=== PATIENT | male | born 1960 | race Caucasian/White ===

== ENCOUNTER 2022-02-12 00:29 | Day surgery (SDC) | payer OTHER, SELFPAY ==
[2022-01-31 15:14] VITALS: BMI 27.4
[2022-02-12 12:00] VITALS: BP 143/80; PULSE 76; RESP 18; TEMP 37.1; O2SAT 96
--- NOTE | 2022-02-12 12:01 | WPDANESEPPF ---
Anes - Initial Pre Proc Eval Procedure: Operation Date: 02/12/22 13:15 Proposed Procedures p Screening Colonoscopy - Neville Michelle MD Date/Time: 02/12/22 12:01 Surgeon: Neville Michelle MD Pre Op Diagnosis: neoplasm screening Patient Data Age: 61 Gender: M Height: 1.73 m Weight: 82 kg Allergies Allergy/AdvReac Type Severity Reaction Status Date / Time No Known Allergies Allergy Verified 02/12/22 11:59 Home Medications Medication Instructions Recorded Confirmed Type No Home Medications 01/31/22 01/31/22 History Patient hx anesthesia problems: none Family hx anesthesia problems: none Results Review: All pre-operative results and documents have been reviewed as part of the pre-operative evaluation. [facility], [facility] Past Medical History Medical History BMI 28.0-28.9,adult Colon cancer screening Encounter for prostate cancer screening PSA 2.02 on 12/31/2021 Encounter for wellness examination in adult Hemospermia urinalysis and urine culture negative on 12/31/2021 Mixed hyperlipidemia (12/31/21) total cholesterol 255, triglycerides 168, HDL 47, LDL 176 on 12/31/2021 Tinnitus Surgical History Surgical History H/O left wrist surgery Family History Family History Father Alcoholism Cancer Mother Diabetes mellitus Social History Social History Smoking status: Never smoker Alcohol intake: current Drinks per week: 1 Substance use: never Substance use type: does not use Living arrangements: alone Spiritual care concerns: No Anes - Eval Final PreProcedure Day of Procedure 02/12/22 12:01 Patient weight: overweight Heart: regular rate and rhythm Lungs: clear to auscultation Airway: Mallampati scale class 1 Neurological: alert and oriented Last oral intake: >/= 8 hours ASA classification: II Emergent: no Anesthetic plan: proceed Anesthesia type and monitoring: general GIVS and standard monitoring Results Review: All pre-operative results and documents have been reviewed as part of the pre-operative evaluation. Informed Consent: The patient's anesthetic plan and its attendant risks and benefits were discussed with the patient/family/POA. Questions were solicited and answers provided to the satisfaction of the patient/family/POA.
[2022-02-12] MEDS: LACTATED RINGERS 1,000 ML 150 ML IV CONT (12:08)
--- NOTE | 2022-02-12 12:10 | PM.HPGS ---
History of Present Illness History of Present Illness Consent: Risks, benefits, and alternatives have been discussed and questions answered. Patient agrees to proceed with procedure. Chief complaint: neoplasm screening Narrative: Arpan Turk is a 61 year old male here for first screening colonoscopy Review of Systems Constitutional: Constitutional: Denies headache(s) and Denies weakness Eyes: Eyes: Denies blurry vision ENT: Reports Normal hearing present, Denies headache(s) and Denies neck pain Cardiovascular: Cardiovascular: Denies chest pain and Denies dyspnea Respiratory: Respiratory: Denies dyspnea Gastrointestinal: Gastrointestinal: Reports no additional gastrointestinal complaints Genitourinary: Genitourinary: Denies dysuria Musculoskeletal: Musculoskeletal: Denies neck pain Integumentary/Breasts: Skin/Breast: Denies dry skin Neurologic: Reports Normal hearing present, Denies headache(s) and Denies weakness Psychiatric: Psychiatric: Denies anxiety Endocrine: Endocrine: Denies change in body appearance Hematologic/Lymphatic: Hematologic/Lymphatic: Denies easy bleeding Allergic/Immunologic: Allergic/Immunologic: Denies urticaria PMF Past Medical History Medical History BMI 28.0-28.9,adult Colon cancer screening Encounter for prostate cancer screening PSA 2.02 on 12/31/2021 Encounter for wellness examination in adult Hemospermia urinalysis and urine culture negative on 12/31/2021 Mixed hyperlipidemia (12/31/21) total cholesterol 255, triglycerides 168, HDL 47, LDL 176 on 12/31/2021 Tinnitus Surgical History Surgical History H/O left wrist surgery Family History Family History Father Alcoholism Cancer Mother Diabetes mellitus Social History Social History Smoking status: Never smoker Alcohol intake: current Drinks per week: 1 Substance use: never Substance use type: does not use Living arrangements: alone Spiritual care concerns: No Meds Home Medications and Allergies Home Medications Medication Instructions Recorded Confirmed Type No Home Medications 01/31/22 01/31/22 History Allergies Allergy/AdvReac Type Severity Reaction Status Date / Time No Known Allergies Allergy Verified 02/12/22 11:59 Vital Signs Vital Signs - 24 hr 02/12/22 12:00 Temperature 98.7 F Pulse Rate 76 Respiratory Rate 18 Blood Pressure 143/80 H Pulse Oximetry 96 Exam Const: General: comfortable and no acute distress HENMT: General nose exam: Normal nares present Eyes: General: appearance normal, both eyes and all related structures Neck: Neck: no JVD Resp: Auscultation: clear to auscultation bilaterally Cardio: Rate: regular rate Rhythm: regular rhythm GI: Inspection: non-distended GI Palp: Yes Soft to palpation Skin: General skin exam: normal color Neuro: General: gait normal Speech: normal speech Extrem: General: normal to inspection Psych: Mental Status: mental status grossly normal Assessment and Plan Assessment and plan (1) Colon cancer screening: Code(s): Z12.11 - Encounter for screening for malignant neoplasm of colon Status: Acute Assessment and Plan: colonoscopy
[2022-02-12 12:29] VITALS: BP 107/66; PULSE 80; RESP 18; O2SAT 95
[2022-02-12 12:39] VITALS: BP 118/66; PULSE 75; RESP 20; O2SAT 99
[2022-02-12 12:49] VITALS: BP 118/66; PULSE 75; RESP 20; O2SAT 99
== END 2022-02-12 13:30 | disposition home or self-care (01) ==
PROVIDERS: PCP Family Medicine; Visit Provider Internal Medicine Gastroenterology
PROC: 0DJD8ZZ Inspection of Lower Intestinal Tract, Via Natural or Artificial Opening Endoscopic (ICD-10-PCS; CPT 45378; principal; 2022-02-12 13:15)
DX: Z12.11 Encounter for screening for malignant neoplasm of colon (principal); K57.30 Diverticulosis of large intestine without perforation or abscess without bleeding; K64.8 Other hemorrhoids; E78.2 Mixed hyperlipidemia
CPT/HCPCS: 45378; J2001; J2704; J7120

== ENCOUNTER 2023-07-15 10:16 | Outpatient (CLI) | payer OTHER, SELFPAY ==
--- NOTE | 2023-07-15 10:31 | ECG_ITS ---
Measurements Intervals [place] Rate: 58 P: 52 MO: 187 QRS: -23 QRSD: 119 T: -11 QT: 390 QTc: 383 Interpretive Statements SINUS BRADYCARDIA INFERIOR MYOCARDIAL INFARCTION , OF INDETERMINATE AGE [40+ ms Q WAVE AND/OR ST/T ABNORMALITY IN II/aVF] NO PREVIOUS ECG AVAILABLE FOR COMPARISON Electronically Signed On 07-15-2023 15:23:37 CDT by Cristina Denise M.D.
== END 2023-07-15 10:17 | disposition home or self-care (01) ==
LOC: ANHIMG 10:19
PROVIDERS: PCP Family Medicine; Visit Provider Family Medicine
DX: I10 Essential (primary) hypertension (principal); R00.1 Bradycardia, unspecified; I25.2 Old myocardial infarction
CPT/HCPCS: 93005

== ENCOUNTER 2023-08-31 08:17 | Outpatient (CLI) | payer OTHER, SELFPAY ==
--- NOTE | 2023-08-31 08:31 | ECHO_ITS ---
Patient Info Name: Arpan Turk Age: 63 years : 1960 Gender: Male Ht: 68 in Wt: 187 lbs BSA: 2.04 m2 HR: 65 bpm BP: 139 / 75 mmHg Technical Quality: Good Exam Date: 08/31/2023 8:41 AM Exam Location: [facility] Patient Status: Outpatient Admit Date: 08/31/2023 Staff Ordering Physician: Mehrdad Willett MD Application Chemist: Elizabeth Gracia RDCS Attending Provider: Mehrdad Willett MD Referring Physician: Brennon MARVIN; Exam Type: CA echo doppler color flow Study Info Indications R94.31 - Abnormal electrocardiogram ECG EKG Complete two-dimensional, color flow and Doppler transthoracic echocardiogram is performed. Summary 1. Complete two-dimensional, color flow and Doppler transthoracic echocardiogram is performed. 2. Left ventricular chamber dimension is normal. 3. Ventricular septum is sigmoid shaped. No LVOT obstruction. 4. Left ventricular systolic function is normal, estimated at 60-65%. 5. The left ventricular diastolic function is grade II diastolic dysfunction. 6. E/e' 9 is minimally elevated. 7. Global longitudinal strain is normal at -17.2%. 8. There is mild aortic valve sclerosis. 9. There is trace aortic valve regurgitation. 10. There is trace mitral valve regurgitation. 11. There is trace tricuspid valve regurgitation. 12. No pulmonary hypertension, estimated pulmonary arterial systolic pressure is 37 mmHg. Left Ventricle E/e' 9 is minimally elevated. Ventricular septum is sigmoid shaped. No LVOT obstruction. Global longitudinal strain is normal at -17.2%. Left ventricular chamber dimension is normal. Left ventricular systolic function is normal, estimated at 60-65%. The left ventricular diastolic function is grade II diastolic dysfunction. Right Ventricle Right ventricular systolic function is normal and with normal TAPSE 2.8 cm. Right ventricular chamber dimension is normal. Left Atria Left atrial chamber dimension is normal. Right Atria Right atrial chamber dimension is normal. Aortic Valve The aortic valve is trileaflet. There is mild aortic valve sclerosis. There is no aortic valve stenosis. There is trace aortic valve regurgitation. Pulmonic Valve There is no pulmonic regurgitation. Mitral Valve There is no mitral valve stenosis. There is trace mitral valve regurgitation. Tricuspid Valve There is trace tricuspid valve regurgitation. No pulmonary hypertension, estimated pulmonary arterial systolic pressure is 37 mmHg. Pericardium/Pleural There is no pericardial effusion. Inferior Vena Cava Normal inferior vena cava with >50% collapse upon inspiration consistent with normal right atrial pressure, 5 mmHg. Aorta The aortic root size at the sinus of Valsalva is normal. Left Ventricular Outflow Tract Name Value Normal LVOT 2D LVOT Diameter 2.2 cm LVOT Doppler LVOT Peak Gradient 4 mmHg LVOT Mean Gradient 2 mmHg LVOT VTI 19 cm LVOT VTI/AV VTI Ratio 0.9 LVOT Stroke Volume 74 ml LVOT CO 4.9 l/min LVOT CI 2.4 l/min/m2 Pulm
--- NOTE | 2023-08-31 08:32 | EST_ITS ---
Patient Info Name: Arpan Turk Age: 63 years : 1960 Gender: Male Ht: 68 in Wt: 187 lbs BSA: 2.04 m2 Exam Date: 08/31/2023 10:13 AM Exam Location: [facility] Patient Status: Outpatient Admit Date: 08/31/2023 Staff Ordering Physician: Mehrdad Willett MD Attending Provider: Mehrdad Willett MD Exercise Technologist: Elizabeth Gracia RDCS Exercise Physician: Lex Carrillo DO Exam Type: CA stress test treadmill Study Info Indications R94.31 - Abnormal electrocardiogram ECG EKG A treadmill exercise stress test was performed. Summary 1. 1. Negative Ajay exercise stress test for ischemic ST changes by ECG criteria. 2. 2. Good functional capacity, achieving 10 METs of workload. 3. 3. Hypertensive response to exercise. 4. 4. Appropriate HR response to exercise. 5. 5. Appropriate HR recovery at 1 minute post exercise. 6. 6. No imaging with stress testing. 7. 7. Patient informed of the above results. Protocol: Ajay Stress ECG Details Stage: REST Duration (min): 2 min : 55 sec Speed (mph): 0.0 Grade (%): 0 HR (bpm): 76 SBP (mmHg): 112 DBP (mmHg): 65 METS: --- Stage: REST Duration (min): 6 min : 36 sec Speed (mph): 0.0 Grade (%): 0 HR (bpm): 72 SBP (mmHg): 112 DBP (mmHg): 65 METS: --- Stage: STAGE 1 Duration (min): 1 min : 0 sec Speed (mph): 1.7 Grade (%): 10 HR (bpm): 96 SBP (mmHg): 112 DBP (mmHg): 65 METS: --- Stage: STAGE 1 Duration (min): 2 min : 0 sec Speed (mph): 1.7 Grade (%): 10 HR (bpm): 105 SBP (mmHg): 112 DBP (mmHg): 65 METS: --- Stage: STAGE 1 Duration (min): 3 min : 0 sec Speed (mph): 1.7 Grade (%): 10 HR (bpm): 109 SBP (mmHg): 168 DBP (mmHg): 82 METS: --- Stage: STAGE 2 Duration (min): 1 min : 0 sec Speed (mph): 2.5 Grade (%): 12 HR (bpm): 123 SBP (mmHg): 168 DBP (mmHg): 82 METS: --- Stage: STAGE 2 Duration (min): 2 min : 0 sec Speed (mph): 2.5 Grade (%): 12 HR (bpm): 130 SBP (mmHg): 182 DBP (mmHg): 79 METS: --- Stage: STAGE 2 Duration (min): 3 min : 0 sec Speed (mph): 2.5 Grade (%): 12 HR (bpm): 138 SBP (mmHg): 182 DBP (mmHg): 79 METS: --- Stage: STAGE 3 Duration (min): 1 min : 0 sec Speed (mph): 3.4 Grade (%): 14 HR (bpm): 142 SBP (mmHg): 208 DBP (mmHg): 85 METS: --- Stage: STAGE 3 Duration (min): 2 min : 0 sec Speed (mph): 3.4 Grade (%): 14 HR (bpm): 153 SBP (mmHg): 208 DBP (mmHg): 85 METS: --- Stage: STAGE 3 Duration (min): 2 min : 0 sec Speed (mph): 3.4 Grade (%): 14 HR (bpm): 153 SBP (mmHg): 208 DBP (mmHg): 85 METS: --- Stage: RECOVERY Duration (min): 0 min : 59 sec Speed (mph): 0.0 Grade (%): 0 HR (bpm): 128 SBP (mmHg): 198 DBP (mmHg): 79 METS: --- Stage: RECOVERY Duration (min): 1 min : 59 sec Speed (mph): 0.0 Grade (%): 0 HR (bpm): 108 SBP (mmHg): 198 DBP (mmHg): 79 METS: ---
== END 2023-08-31 08:18 | disposition home or self-care (01) ==
PROVIDERS: PCP Family Medicine; Visit Provider Family Medicine
DX: R94.31 Abnormal electrocardiogram [ECG] [EKG] (principal)
CPT/HCPCS: 93017; 93306